=== PATIENT | male | born 1995 | race Caucasian/White ===

== ENCOUNTER 2016-11-28 16:56 | Emergency (ER) | payer MEDICAID, SELFPAY ==
[~2016-11-28] VITALS: Ht 175.3 cm; Wt 74.8 kg
[~2016-11-28 16:56] MED LIST: NO HOME MEDICATIONS; VIAG100T PO
[2016-11-28] MEDS ORDERED: NALOXONE INJ 2 MG/2 ML SYRINGE (J2310) IM STA (17:04)
[2016-11-28] MEDS ORDERED: NALOXONE INJ 2 MG/2 ML SYRINGE (J2310) IV STA (17:04)
[2016-11-28 17:45] VITALS: BP 102/46
== END 2016-11-28 18:36 | disposition home or self-care (01) ==
LOC: EDBD 16:56 → M ED 18:27
DX: F11.10 Opioid abuse, uncomplicated (principal); T40.1X1A Poisoning by heroin, accidental (unintentional), initial encounter; F17.200 Nicotine dependence, unspecified, uncomplicated
CPT/HCPCS: 36415; 96372; 96374; 99283; J2310

== ENCOUNTER → 2016-12-06 | Outpatient (CLI) | payer MEDICAID | LOC: M OUTALCOH 08:40 | PROVIDERS: ATTEND Psychiatry & Neurology Psychiatry | DX: Z13.9 Encounter for screening, unspecified (principal) ==

== ENCOUNTER → 2016-12-08 | Outpatient (CLI) | payer MEDICAID | LOC: M OUTALCOH 07:50 | PROVIDERS: ATTEND Psychiatry & Neurology Psychiatry | DX: Z13.9 Encounter for screening, unspecified (principal); F13.20 Sedative, hypnotic or anxiolytic dependence, uncomplicated; F11.20 Opioid dependence, uncomplicated ==

== ENCOUNTER 2016-12-15 13:53 | Outpatient (RCR) | payer MEDICAID | END 2017-01-11 | LOC: M OUTALCOH 13:53 | PROVIDERS: ATTEND Psychiatry & Neurology Psychiatry | DX: F13.20 Sedative, hypnotic or anxiolytic dependence, uncomplicated (principal); F11.20 Opioid dependence, uncomplicated; Z72.0 Tobacco use ==

== ENCOUNTER 2017-05-21 17:08 | Emergency (ER) | payer MEDICAID ==
[~2017-05-21] VITALS: Ht 180.3 cm; Wt 75.0 kg
[2017-05-21 17:09] VITALS: BP 131/78
[2017-05-21] MEDS ORDERED: RITA10TA PO (17:24)
== END 2017-05-21 17:50 | disposition left against medical advice (07) ==
LOC: M ED 17:08
DX: Z71.1 Person with feared health complaint in whom no diagnosis is made (principal); Z53.21 Procedure and treatment not carried out due to patient leaving prior to being seen by health care provider

== ENCOUNTER 2017-06-27 12:38 | Emergency (ER) | payer MEDICAID, OTHER ==
[~2017-06-27] VITALS: Ht 180.3 cm; Wt 75.0 kg
[~2017-06-27 12:38] MED LIST changes: +RITA10TA PO
[2017-06-27 14:14] VITALS: BP 123/59
== END 2017-06-27 14:16 | disposition home or self-care (01) ==
LOC: M ED 12:38
DX: F19.11 Other psychoactive substance abuse, in remission (principal); Z79.899 Other long term (current) drug therapy

== ENCOUNTER → 2017-07-04 | Outpatient (CLI) | payer OTHER ==
[2017-07-04 11:52] LABS: MEAN CORPUSCULAR HEMOGLOBIN 30.4 pg (27.0-33.0); MEAN CORPUSCULAR HGB CONC 34.6 g/dl (32.0-36.5); MEAN CORPUSCULAR VOLUME 87.9 fl (80.0-96.0); PLATELET COUNT, AUTOMATED 253 10^3/uL (150-450); WHITE BLOOD COUNT 7.1 10^3/uL (4.0-10.0)
[2017-07-04 12:11] LABS: ALBUMIN 4.2 GM/DL (3.2-5.2); ALBUMIN/GLOBULIN RATIO 1.31 (1.00-1.93); ALKALINE PHOSPHATASE 98 U/L (45-117); ALT/SGPT 48 U/L (12-78); ANION GAP 6 MEQ/L (8-16); AST/SGOT 46 U/L (7-37); BILIRUBIN,TOTAL 0.8 MG/DL (0.2-1.0); BLOOD UREA NITROGEN 8 MG/DL (7-18); CALCIUM LEVEL 9.2 MG/DL (8.5-10.1); CARBON DIOXIDE LEVEL 31 MEQ/L (21-32); CHLORIDE LEVEL 101 MEQ/L (98-107); CHOLESTEROL LEVEL 179 MG/DL (<200); CREATININE FOR GFR 0.86 MG/DL (0.70-1.30); GLOMERULAR FILTRATION RATE > 60.0 (>60); GLUCOSE, FASTING 104 MG/DL (70-105); POTASSIUM SERUM 4.2 MEQ/L (3.5-5.1); SODIUM LEVEL 138 MEQ/L (136-145); TOTAL PROTEIN 7.4 GM/DL (6.4-8.2); TRIGLYCERIDES LEVEL 110 MG/DL (<150)
== END ==
LOC: M LAB 10:59
PROVIDERS: ATTEND Family Medicine
DX: D64.9 Anemia, unspecified (principal)

== ENCOUNTER 2017-08-26 15:37 | Emergency (ER) | payer OTHER | END 2017-08-26 17:29 | disposition home or self-care (01) | LOC: M ED 15:37 | DX: T40.1X1A Poisoning by heroin, accidental (unintentional), initial encounter (principal); Y92.9 Unspecified place or not applicable; Y93.9 Activity, unspecified; F19.10 Other psychoactive substance abuse, uncomplicated; F17.200 Nicotine dependence, unspecified, uncomplicated; Z79.899 Other long term (current) drug therapy | CPT/HCPCS: 99284 ==

== ENCOUNTER → 2018-02-12 | Outpatient (CLI) | payer OTHER ==
[2018-02-12 10:35] LABS: HEMATOCRIT 41.6 % (42.0-52.0); HEMOGLOBIN 13.9 g/dl (13.5-17.5); MEAN CORPUSCULAR HEMOGLOBIN 30.8 pg (27.0-33.0); MEAN CORPUSCULAR HGB CONC 33.4 g/dl (32.0-36.5); PLATELET COUNT, AUTOMATED 270 10^3/uL (150-450); RED BLOOD COUNT 4.52 10^6/uL (4.30-6.10); RED CELL DISTRIBUTION WIDTH 13.1 % (11.5-14.5); WHITE BLOOD COUNT 6.8 10^3/uL (4.0-10.0)
[2018-02-12 11:03] LABS: ALBUMIN 4.1 GM/DL (3.2-5.2); ALBUMIN/GLOBULIN RATIO 1.32 (1.00-1.93); ALKALINE PHOSPHATASE 97 U/L (45-117); ALT/SGPT 59 U/L (12-78); ANION GAP 5 MEQ/L (8-16); AST/SGOT 24 U/L (7-37); BILIRUBIN,TOTAL 0.5 MG/DL (0.2-1.0); BLOOD UREA NITROGEN 11 MG/DL (7-18); CALCIUM LEVEL 9.1 MG/DL (8.5-10.1); CARBON DIOXIDE LEVEL 32 MEQ/L (21-32); CHLORIDE LEVEL 105 MEQ/L (98-107); CREATININE FOR GFR 0.83 MG/DL (0.70-1.30); GLOMERULAR FILTRATION RATE > 60.0 (>60); GLUCOSE, FASTING 93 MG/DL (70-100); POTASSIUM SERUM 4.6 MEQ/L (3.5-5.1); SODIUM LEVEL 142 MEQ/L (136-145); TOTAL PROTEIN 7.2 GM/DL (6.4-8.2)
[2018-02-12 11:20] LABS: HEPATITIS B SURFACE ANTIGEN NEGATIVE (NEGATIVE)
[2018-02-12 11:48] LABS: HIV 1&2 SCREEN CENTAUR NEGATIVE (NEGATIVE)
[2018-02-12 11:54] LABS: HEPATITIS C VIRUS ABY INDEX > 11.0 INDEX (<0.8)
[2018-02-12 14:15] LABS: CHLAMYDIA DNA AMPLIFICATION NEGATIVE (NEGATIVE); GC DNA AMPLIFICATION NEGATIVE (NEGATIVE)
[2018-02-17 00:12] LABS: HCV RNA NAA QUALITATIVE Negative (Negative)
== END ==
LOC: M LAB 09:49
DX: F11.20 Opioid dependence, uncomplicated (principal)
CPT/HCPCS: 93005

== ENCOUNTER → 2018-09-10 | Outpatient (REF) | payer OTHER | LOC: M LAB REF 15:05 | PROVIDERS: ATTEND Family Medicine | DX: F90.0 Attention-deficit hyperactivity disorder, predominantly inattentive type (principal) ==

== ENCOUNTER → 2020-08-11 | Outpatient (REF) | payer OTHER | LOC: M LAB REF 16:01 | PROVIDERS: ATTEND Family Medicine Addiction Medicine | DX: R85.0 Abnormal level of enzymes in specimens from digestive organs and abdominal cavity (principal) ==

== ENCOUNTER → 2021-05-17 | Outpatient (CLI) | payer OTHER ==
--- NOTE | 2021-05-17 17:27 | REP ---
INDICATION: PAIN IN LEFT FOREARM COMPARISON: None. TECHNIQUE: AP, lateral, bilateral oblique views of the left elbow. FINDINGS: There is a nondisplaced radial head fracture with associated joint effusion and swelling. IMPRESSION: Acute nondisplaced radial head fracture. <Electronically signed by Jose D Yoon > 05/17/21 1524
--- NOTE | 2021-05-17 17:28 | REP ---
INDICATION: PAIN IN LEFT FOREARM COMPARISON: None. TECHNIQUE: AP and lateral left forearm. FINDINGS: Acute nondisplaced fracture of the radial head at the elbow joint with associated joint effusion and swelling. Remainder of the radius and ulna appear intact and normal. IMPRESSION: Acute nondisplaced radial head fracture with swelling and effusion.. <Electronically signed by Jose D Yoon > 05/17/21 [id number]
== END ==
LOC: M RAD 16:50
PROVIDERS: ATTEND Family Medicine Addiction Medicine
DX: M79.632 Pain in left forearm (principal)

== ENCOUNTER → 2021-05-20 | Outpatient (CLI) | payer MEDICAID | LOC: M OUTALCOH 09:49 | PROVIDERS: ATTEND Psychiatry & Neurology Psychiatry | DX: F12.10 Cannabis abuse, uncomplicated (principal) ==

== ENCOUNTER 2021-06-09 14:00 | Outpatient (RCR) | payer MEDICAID | END 2021-06-13 | LOC: M OUTALCOH 14:00 | PROVIDERS: ATTEND Psychiatry & Neurology Psychiatry | DX: F10.10 Alcohol abuse, uncomplicated (principal); F12.10 Cannabis abuse, uncomplicated ==

== ENCOUNTER 2021-07-12 11:00 | Outpatient (RCR) | payer MEDICAID | END 2021-07-13 | LOC: M OUTALCOH 11:00 | PROVIDERS: ATTEND Psychiatry & Neurology Psychiatry | DX: F10.10 Alcohol abuse, uncomplicated (principal); F12.10 Cannabis abuse, uncomplicated; F17.200 Nicotine dependence, unspecified, uncomplicated ==

== ENCOUNTER 2021-08-11 13:00 | Outpatient (RCR) | payer MEDICAID | END 2021-08-13 | LOC: M OUTALCOH 13:00 | PROVIDERS: ATTEND Psychiatry & Neurology Psychiatry | DX: F10.10 Alcohol abuse, uncomplicated (principal); F12.10 Cannabis abuse, uncomplicated; F17.200 Nicotine dependence, unspecified, uncomplicated ==

== ENCOUNTER 2022-11-18 15:49 | Emergency (ER) | payer MEDICAID ==
[2022-11-18] MEDS ORDERED: NICO1DIS10 TD (17:02)
[2022-11-18] MEDS ORDERED: METH20TA29 PO (17:02)
[2022-11-18] MEDS ORDERED: BUPR1FIL3 SL (17:02)
[2022-11-18] MEDS ORDERED: HOME MED LIST COMPLETE! XX SCH (17:05)
[2022-11-18 21:01] VITALS: BP 124/87
== END 2022-11-18 21:04 | disposition home or self-care (01) ==
LOC: M ED 15:49
DX: Z00.8 Encounter for other general examination (principal); F90.9 Attention-deficit hyperactivity disorder, unspecified type; F19.10 Other psychoactive substance abuse, uncomplicated; F12.10 Cannabis abuse, uncomplicated

== ENCOUNTER → 2023-03-07 | Outpatient (CLI) | payer OTHER ==
[~2023-03-07] MED LIST changes: +BUPR1FIL3 SL; +METH20TA29 PO; +NICO1DIS10 TD
[2023-03-07 15:22] LABS: BASO # 0.1 10^3/uL (0.0-0.2); BASO % 0.8 % (0.0-1.0); EOS # 0.4 10^3/uL (0.0-0.5); EOS % 7.1 % (0.0-3.0); HEMATOCRIT 37.8 % (42.0-52.0); LYMPH # 2.7 10^3/uL (1.5-5.0); LYMPH % 42.9 % (24.0-44.0); MEAN CORPUSCULAR HEMOGLOBIN 30.7 pg (27.0-33.0); MEAN CORPUSCULAR HGB CONC 34.4 g/dl (32.0-36.5); MEAN CORPUSCULAR VOLUME 89.4 fl (80.0-96.0); MONO # 0.5 10^3/uL (0.0-0.8); MONO % 7.4 % (2.0-8.0); NEUTROPHILS # 2.6 10^3/uL (1.5-8.5); NEUTROPHILS % 41.5 % (36.0-66.0); PLATELET COUNT, AUTOMATED 259 10^3/uL (150-450); RED BLOOD COUNT 4.23 10^6/uL (4.30-6.10); WHITE BLOOD COUNT 6.2 10^3/uL (4.0-10.0)
[2023-03-07 15:45] LABS: ALBUMIN 4.8 G/DL (3.2-5.2); ALKALINE PHOSPHATASE 76 U/L (46-116); ALT/SGPT 16 U/L (7.0-40); AST/SGOT 21 U/L (<34); BILIRUBIN,DIRECT 0.4 MG/DL (<0.4); BILIRUBIN,TOTAL 1.1 MG/DL (0.3-1.2); TOTAL PROTEIN 7.4 G/DL (5.7-8.2)
[2023-03-07 15:46] LABS: HEPATITIS B SURFACE ANTIBODY NEGATIVE (POSITIVE)
[2023-03-07 16:20] LABS: HEPATITIS B CORE ANTIBODY IGM NEGATIVE (NEGATIVE)
[2023-03-07 19:10] LABS: HEPATITIS C VIRUS ABY INDEX 10.97 INDEX (<0.8)
== END ==
LOC: M RAD 14:04
PROVIDERS: ATTEND Physician Assistant Medical
DX: R10.11 Right upper quadrant pain (principal); K80.20 Calculus of gallbladder without cholecystitis without obstruction

== ENCOUNTER 2023-07-05 11:57 | Emergency (ER) | payer OTHER ==
[~2023-07-05] VITALS: Ht 180.3 cm; Wt 67.9 kg
[2023-07-05] MEDS ORDERED: OLANZapine ORAL DISINTEGRATING TAB 5MG PO ONE (13:10)
[2023-07-05 13:33] LABS: HEMATOCRIT 40.9 % (42.0-52.0); HEMOGLOBIN 13.8 g/dl (13.5-17.5); MEAN CORPUSCULAR HEMOGLOBIN 30.3 pg (27.0-33.0); MEAN CORPUSCULAR HGB CONC 33.7 g/dl (32.0-36.5); MEAN CORPUSCULAR VOLUME 89.9 fl (80.0-96.0); PLATELET COUNT, AUTOMATED 261 10^3/uL (150-450); RED BLOOD COUNT 4.55 10^6/uL (4.30-6.10); WHITE BLOOD COUNT 5.1 10^3/uL (4.0-10.0)
[2023-07-05 13:44] LABS: ETHYL ALCOHOL (ETHANOL) < 0.003 % (0.000-0.010)
[2023-07-05 13:46] LABS: ALBUMIN 4.9 G/DL (3.2-5.2); ALKALINE PHOSPHATASE 78 U/L (46-116); ALT/SGPT 19 U/L (7.0-40); AST/SGOT 17 U/L (<34); BILIRUBIN,DIRECT 0.3 MG/DL (<0.4); BILIRUBIN,TOTAL 0.7 MG/DL (0.3-1.2); BLOOD UREA NITROGEN 12 MG/DL (9-23); CALCIUM LEVEL 10.2 MG/DL (8.5-10.1); CARBON DIOXIDE LEVEL 26 MMOL/L (20-31); CHLORIDE LEVEL 102 MMOL/L (98-107); CREATININE FOR GFR 0.64 MG/DL (0.70-1.30); GLOMERULAR FILTRATION RATE > 60.0 (>60); GLUCOSE, FASTING 110 MG/DL (60-100); SALICYLATE LEVEL < 3.0 MG/DL (<30); SODIUM LEVEL 137 MMOL/L (136-145); TOTAL PROTEIN 7.7 G/DL (5.7-8.2)
[2023-07-05 13:49] LABS: THYROID STIMULATING HORMONE 1.045 uIU/ML (0.55-4.78)
[2023-07-05] MEDS ORDERED: MED REC IN PROGRESS XX SCH (15:10)
[2023-07-05 15:24] LABS: AMPHETAMINES LEVEL URINE NEGATIVE (NEGATIVE); BARBITURATES URINE NEGATIVE (NEGATIVE); BENZODIAZEPINES URINE NEGATIVE (NEGATIVE); COCAINE METABOLITE URINE NEGATIVE (NEGATIVE); METHADONE URINE NEGATIVE (NEGATIVE); OPIATES URINE NEGATIVE (NEGATIVE); PHENCYCLIDINE URINE NEGATIVE (NEGATIVE)
[2023-07-05] MEDS ORDERED: HOME MED LIST COMPLETE! XX SCH (15:25)
[2023-07-05 15:32] LABS: CANNABINOIDS URINE POSITIVE (NEGATIVE)
[2023-07-05 15:59] VITALS: BP 143/87; TEMP 98.4; O2SAT 97
== END 2023-07-05 16:06 | disposition home or self-care (01) ==
LOC: M ED 11:57
DX: R44.0 Auditory hallucinations (principal); F90.9 Attention-deficit hyperactivity disorder, unspecified type; F17.200 Nicotine dependence, unspecified, uncomplicated; F12.10 Cannabis abuse, uncomplicated; Z79.899 Other long term (current) drug therapy; Z79.891 Long term (current) use of opiate analgesic

== ENCOUNTER 2023-07-28 19:42 | Emergency (ER) | payer OTHER ==
[~2023-07-28] VITALS: Ht 180.3 cm; Wt 71.1 kg
[2023-07-28 19:42] VITALS: BP 119/68; TEMP 97.4; O2SAT 100
== END 2023-07-28 23:35 | disposition left against medical advice (07) ==
LOC: M ED 19:42
DX: Z53.21 Procedure and treatment not carried out due to patient leaving prior to being seen by health care provider (principal)

== ENCOUNTER 2023-08-04 10:58 | Emergency (ER) | payer OTHER ==
[~2023-08-04] VITALS: Ht 180.3 cm; Wt 75.0 kg
[2023-08-04 12:04] LABS: HEMATOCRIT 42.9 % (42.0-52.0); HEMOGLOBIN 14.6 g/dl (13.5-17.5); MEAN CORPUSCULAR HEMOGLOBIN 31.3 pg (27.0-33.0); MEAN CORPUSCULAR VOLUME 91.9 fl (80.0-96.0); PLATELET COUNT, AUTOMATED 240 10^3/uL (150-450); RED BLOOD COUNT 4.67 10^6/uL (4.30-6.10)
[2023-08-04 12:35] LABS: AMPHETAMINES LEVEL URINE NEGATIVE (NEGATIVE); BARBITURATES URINE NEGATIVE (NEGATIVE); BENZODIAZEPINES URINE NEGATIVE (NEGATIVE); COCAINE METABOLITE URINE NEGATIVE (NEGATIVE); METHADONE URINE NEGATIVE (NEGATIVE); OPIATES URINE NEGATIVE (NEGATIVE); PHENCYCLIDINE URINE NEGATIVE (NEGATIVE)
[2023-08-04 12:37] LABS: ETHYL ALCOHOL (ETHANOL) 0.007 % (0.000-0.010)
[2023-08-04 12:39] LABS: ALKALINE PHOSPHATASE 78 U/L (46-116); ALT/SGPT 17 U/L (7.0-40); AST/SGOT 16 U/L (<34); BILIRUBIN,DIRECT 0.2 MG/DL (<0.4); BILIRUBIN,TOTAL 0.8 MG/DL (0.3-1.2); BLOOD UREA NITROGEN 10 MG/DL (9-23); CALCIUM LEVEL 10.1 MG/DL (8.5-10.1); CARBON DIOXIDE LEVEL 31 MMOL/L (20-31); CHLORIDE LEVEL 101 MMOL/L (98-107); CREATININE FOR GFR 0.62 MG/DL (0.70-1.30); GLOMERULAR FILTRATION RATE > 60.0 (>60); GLUCOSE, FASTING 91 MG/DL (60-100); SALICYLATE LEVEL < 3.0 MG/DL (<30); SODIUM LEVEL 138 MMOL/L (136-145); TOTAL PROTEIN 7.7 G/DL (5.7-8.2)
[2023-08-04 12:41] LABS: THYROID STIMULATING HORMONE 1.754 uIU/ML (0.55-4.78)
[2023-08-04 12:59] LABS: CANNABINOIDS URINE POSITIVE (NEGATIVE)
[2023-08-04] MEDS ORDERED: MED REC IN PROGRESS XX SCH (13:00)
[2023-08-04] MEDS ORDERED: NICO21DI37 TD (13:24)
[2023-08-04] MEDS ORDERED: HOME MED LIST COMPLETE! XX SCH (13:30)
[2023-08-04 13:41] VITALS: BP 143/90; TEMP 98.7; O2SAT 100
== END 2023-08-04 13:38 | disposition home or self-care (01) ==
LOC: M ED 10:58
DX: F12.10 Cannabis abuse, uncomplicated (principal); F90.9 Attention-deficit hyperactivity disorder, unspecified type; Z79.899 Other long term (current) drug therapy

== ENCOUNTER 2023-08-27 12:18 | Inpatient (IN) | payer MEDICAID, OTHER ==
[~2023-08-27] VITALS: Ht 180.3 cm; Wt 74.0 kg
[~2023-08-27 12:18] MED LIST changes: +NICO21DI37 TD
[2023-08-27] MEDS ORDERED: MED REC IN PROGRESS XX SCH (12:40)
[2023-08-27 13:05] LABS: HEMATOCRIT 42.5 % (42.0-52.0); HEMOGLOBIN 14.5 g/dl (13.5-17.5); MEAN CORPUSCULAR HEMOGLOBIN 31.4 pg (27.0-33.0); MEAN CORPUSCULAR HGB CONC 34.1 g/dl (32.0-36.5); PLATELET COUNT, AUTOMATED 198 10^3/uL (150-450); RED BLOOD COUNT 4.62 10^6/uL (4.30-6.10); WHITE BLOOD COUNT 4.4 10^3/uL (4.0-10.0)
[2023-08-27 13:23] LABS: AMPHETAMINES LEVEL URINE NEGATIVE (NEGATIVE); BARBITURATES URINE NEGATIVE (NEGATIVE); BENZODIAZEPINES URINE NEGATIVE (NEGATIVE); COCAINE METABOLITE URINE NEGATIVE (NEGATIVE); METHADONE URINE NEGATIVE (NEGATIVE); OPIATES URINE NEGATIVE (NEGATIVE); PHENCYCLIDINE URINE NEGATIVE (NEGATIVE)
[2023-08-27 13:25] LABS: ETHYL ALCOHOL (ETHANOL) < 0.003 % (0.000-0.010)
[2023-08-27 13:26] LABS: SALICYLATE LEVEL < 3.0 MG/DL (<30)
[2023-08-27 13:27] LABS: ALBUMIN 5.2 G/DL (3.2-5.2); ALKALINE PHOSPHATASE 72 U/L (46-116); ALT/SGPT 48 U/L (7.0-40); AST/SGOT 29 U/L (<34); BILIRUBIN,DIRECT 0.2 MG/DL (<0.4); BILIRUBIN,TOTAL 0.7 MG/DL (0.3-1.2); BLOOD UREA NITROGEN 16 MG/DL (9-23); CANNABINOIDS URINE POSITIVE (NEGATIVE); CARBON DIOXIDE LEVEL 30 MMOL/L (20-31); CHLORIDE LEVEL 100 MMOL/L (98-107); CREATININE FOR GFR 0.78 MG/DL (0.70-1.30); GLOMERULAR FILTRATION RATE > 60.0 (>60); GLUCOSE, FASTING 114 MG/DL (60-100); POTASSIUM SERUM 3.6 MMOL/L (3.5-5.1); SODIUM LEVEL 138 MMOL/L (136-145)
[2023-08-27 13:29] LABS: THYROID STIMULATING HORMONE 1.125 uIU/ML (0.55-4.78)
[2023-08-27] MEDS ORDERED: HOME MED LIST COMPLETE! XX SCH (14:00)
[2023-08-27] MEDS: METHYLPHENIDATE 5 MG TAB PO SCH (15:27)
[2023-08-27] MEDS ORDERED: NICOTINE 21MG/24HR 1 EA TRANSDERMAL TD ONE (17:45)
[2023-08-28] MEDS: METHYLPHENIDATE 5 MG TAB PO SCH ×3 (08:11→15:01)
[2023-08-28] MEDS ORDERED: BUPRENORPHINE/NALOXONE 8-2MG SUBLINGUAL TABLET(SUBOXONE) SL SCH (09:00)
[2023-08-28] MEDS ORDERED: MAALOX 30 ML SUSP *UDC PO PRN (16:05)
[2023-08-28] MEDS ORDERED: IBUPROFEN 400MG TAB PO PRN (16:05)
[2023-08-28] MEDS ORDERED: diphenhydrAMINE 25MG CAP PO PRN (16:05)
[2023-08-28] MEDS ORDERED: ACETAMINOPHEN TAB 650MG DOSE (2X325MG) PO PRN (16:05)
[2023-08-28] MEDS ORDERED: MOM 30ML SUSPENSION UDC PO PRN (16:05)
[2023-08-28 17:14] VITALS: BP 144/85; TEMP 98.3; O2SAT 100
[2023-08-28] MEDS: OLANZapine ORAL DISINTEGRATING TAB 5MG PO PRN (18:04)
[2023-08-29 06:38] VITALS: BP 109/55; TEMP 97.7; O2SAT 100
[2023-08-29] MEDS: NICOTINE 21MG/24HR 1 EA TRANSDERMAL TD PRN (08:11)
[2023-08-29] MEDS: OLANZapine ORAL DISINTEGRATING TAB 5MG PO PRN (09:09)
[2023-08-29] MEDS: METHYLPHENIDATE 5 MG TAB PO SCH ×3 (10:02→15:54)
[2023-08-29] MEDS: PILL CUTTER 1 EACH XX PRN (10:50)
[2023-08-29] MEDS: BUPRENORPHINE/NALOXONE 8-2MG SUBLINGUAL TABLET(SUBOXONE) SL SCH (10:51)
[2023-08-29 16:26] VITALS: BP 140/80; TEMP 98.2; O2SAT 100
[2023-08-29] MEDS: traZODone 50 MG TAB PO PRN (19:58)
[2023-08-29] MEDS: OLANZapine 5 MG TAB PO SCH (19:58)
[2023-08-30 06:33] VITALS: BP 106/80; TEMP 98.7; O2SAT 100
[2023-08-30] MEDS: NICOTINE 21MG/24HR 1 EA TRANSDERMAL TD PRN (08:00)
[2023-08-30] MEDS: METHYLPHENIDATE 5 MG TAB PO SCH ×3 (08:00→14:41)
[2023-08-30] MEDS: PILL CUTTER 1 EACH XX PRN (08:55)
[2023-08-30] MEDS: BUPRENORPHINE/NALOXONE 8-2MG SUBLINGUAL TABLET(SUBOXONE) SL SCH (08:55)
[2023-08-30] MEDS: OLANZapine ORAL DISINTEGRATING TAB 5MG PO PRN (12:51)
[2023-08-30 17:10] VITALS: BP 138/82; TEMP 99
[2023-08-30] MEDS: traZODone 50 MG TAB PO PRN (20:06)
[2023-08-30] MEDS: OLANZapine 5 MG TAB PO SCH (20:06)
[2023-08-31 06:49] VITALS: BP 127/59; TEMP 98.1; O2SAT 99
[2023-08-31] MEDS: PILL CUTTER 1 EACH XX PRN (08:03)
[2023-08-31] MEDS: NICOTINE 21MG/24HR 1 EA TRANSDERMAL TD PRN (08:03)
[2023-08-31] MEDS: METHYLPHENIDATE 5 MG TAB PO SCH ×3 (08:03→14:13)
[2023-08-31] MEDS: BUPRENORPHINE/NALOXONE 8-2MG SUBLINGUAL TABLET(SUBOXONE) SL SCH (08:03)
[2023-08-31] MEDS ORDERED: OLAN1TAB16 PO (12:22)
[2023-08-31 16:58] VITALS: BP 127/77; TEMP 99.5; O2SAT 99
[2023-08-31] MEDS: OLANZapine 5 MG TAB PO SCH (20:01)
[2023-08-31] MEDS: traZODone 50 MG TAB PO PRN (20:01)
[2023-09-01 06:30] VITALS: BP 109/60; TEMP 98.4; O2SAT 99
[2023-09-01] MEDS: NICOTINE 21MG/24HR 1 EA TRANSDERMAL TD PRN (07:58)
[2023-09-01] MEDS: BUPRENORPHINE/NALOXONE 8-2MG SUBLINGUAL TABLET(SUBOXONE) SL SCH (07:58)
[2023-09-01] MEDS: METHYLPHENIDATE 5 MG TAB PO SCH (09:20)
== END 2023-09-01 11:14 | disposition home or self-care (01) | DRG 751 ==
LOC: M ED 12:18 → M ED INP 08-28 16:01 → M PSY 08-28 17:12
PROVIDERS: ADMIT Student in an Organized Health Care Education/Training Program; ATTEND Student in an Organized Health Care Education/Training Program
DX: F29 Unspecified psychosis not due to a substance or known physiological condition (principal); Z91.148 Patient's other noncompliance with medication regimen for other reason; F17.220 Nicotine dependence, chewing tobacco, uncomplicated; Z79.899 Other long term (current) drug therapy; F90.9 Attention-deficit hyperactivity disorder, unspecified type; Z91.52 Personal history of nonsuicidal self-harm

== ENCOUNTER 2024-02-23 10:36 | Emergency (ER) | payer MEDICAID ==
[~2024-02-23] VITALS: Ht 180.3 cm; Wt 77.1 kg
[~2024-02-23 10:36] MED LIST changes: +OLAN1TAB16 PO
[2024-02-23 11:54] LABS: BASO # 0.1 10^3/uL (0.0-0.2); BASO % 1.1 % (0.0-1.0); EOS # 0.5 10^3/uL (0.0-0.5); EOS % 11.5 % (0.0-3.0); HEMATOCRIT 38.9 % (42.0-52.0); HEMOGLOBIN 13.1 g/dl (13.5-17.5); LYMPH # 1.8 10^3/uL (1.5-5.0); LYMPH % 39.7 % (24.0-44.0); MEAN CORPUSCULAR HEMOGLOBIN 30.5 pg (27.0-33.0); MEAN CORPUSCULAR HGB CONC 33.7 g/dl (32.0-36.5); MEAN CORPUSCULAR VOLUME 90.5 fl (80.0-96.0); MONO # 0.3 10^3/uL (0.0-0.8); MONO % 5.9 % (2.0-8.0); NEUTROPHILS # 1.8 10^3/uL (1.5-8.5); NEUTROPHILS % 41.6 % (36.0-66.0); PLATELET COUNT, AUTOMATED 164 10^3/uL (150-450); WHITE BLOOD COUNT 4.4 10^3/uL (4.0-10.0)
[2024-02-23 12:10] LABS: LIPASE 33 U/L (12-53)
[2024-02-23 12:12] LABS: ALBUMIN 4.3 G/DL (3.2-5.2); ALKALINE PHOSPHATASE 75 U/L (46-116); ALT/SGPT 15 U/L (7.0-40); AST/SGOT < 8 U/L (<34); BILIRUBIN,DIRECT 0.1 MG/DL (<0.4); BILIRUBIN,TOTAL 0.4 MG/DL (0.3-1.2); TOTAL PROTEIN 6.7 G/DL (5.7-8.2)
[2024-02-23 13:03] VITALS: BP 109/55; TEMP 97.3; O2SAT 100
== END 2024-02-23 13:04 | disposition home or self-care (01) ==
LOC: M ED 10:36
DX: R10.11 Right upper quadrant pain (principal); F90.9 Attention-deficit hyperactivity disorder, unspecified type; F12.10 Cannabis abuse, uncomplicated; F17.220 Nicotine dependence, chewing tobacco, uncomplicated; Z79.899 Other long term (current) drug therapy

== ENCOUNTER → 2024-04-02 | Outpatient (CLI) | payer OTHER | LOC: M RAD 08:14 | PROVIDERS: ATTEND Family Medicine Addiction Medicine | DX: R10.9 Unspecified abdominal pain (principal) | CPT/HCPCS: 78227; A9537 ==

== ENCOUNTER 2024-10-05 07:52 | Emergency (ER) | payer OTHER ==
[~2024-10-05] VITALS: Ht 180.3 cm; Wt 64.4 kg
[2024-10-05] MEDS ORDERED: SILD100T (08:04)
[2024-10-05] MEDS ORDERED: CETI-24 PO (10:03)
[2024-10-05] MEDS ORDERED: FLON1SPR NARES (10:03)
[2024-10-05 10:25] VITALS: BP 128/64; TEMP 97.2; O2SAT 98
== END 2024-10-05 10:28 | disposition home or self-care (01) ==
LOC: M ED 07:52
DX: R44.0 Auditory hallucinations (principal); H93.8X3 Other specified disorders of ear, bilateral; F12.10 Cannabis abuse, uncomplicated; F17.200 Nicotine dependence, unspecified, uncomplicated; F10.10 Alcohol abuse, uncomplicated; F90.9 Attention-deficit hyperactivity disorder, unspecified type; Z79.899 Other long term (current) drug therapy; Z79.2 Long term (current) use of antibiotics

== ENCOUNTER → 2024-11-29 | Outpatient (REF) | payer OTHER ==
[~2024-11-29] MED LIST changes: +CETI-24 PO; +FLON1SPR NARES; +SILD100T
[2024-11-29 17:58] LABS: HEMATOCRIT 39.4 % (42.0-52.0); HEMOGLOBIN 13.2 g/dl (13.5-17.5); MEAN CORPUSCULAR HEMOGLOBIN 31.3 pg (27.0-33.0); MEAN CORPUSCULAR HGB CONC 33.5 g/dl (32.0-36.5); MEAN CORPUSCULAR VOLUME 93.4 fl (80.0-96.0); PLATELET COUNT, AUTOMATED 217 10^3/uL (150-450); RED BLOOD COUNT 4.22 10^6/uL (4.30-6.10); WHITE BLOOD COUNT 6.2 10^3/uL (4.0-10.0)
[2024-11-29 18:05] LABS: THYROID STIMULATING HORMONE 1.642 uIU/ML (0.55-4.78)
[2024-11-29 18:06] LABS: ALBUMIN 4.3 G/DL (3.2-5.2); ALKALINE PHOSPHATASE 74 U/L (40-129); ALT/SGPT 24 U/L (7.0-40); AST/SGOT 13 U/L (<34); BILIRUBIN,TOTAL 0.5 MG/DL (0.3-1.2); BLOOD UREA NITROGEN 16 MG/DL (9-23); CALCIUM LEVEL 9.7 MG/DL (8.5-10.1); CARBON DIOXIDE LEVEL 30 MMOL/L (20-31); CHLORIDE LEVEL 102 MMOL/L (98-107); CREATININE FOR GFR 0.82 MG/DL (0.70-1.30); GLOMERULAR FILTRATION RATE > 90.0 (>60); GLUCOSE, FASTING 80 MG/DL (60-100); POTASSIUM SERUM 4.4 MMOL/L (3.5-5.1); SODIUM LEVEL 141 MMOL/L (136-145); TOTAL PROTEIN 7.1 G/DL (5.7-8.2)
== END ==
LOC: M LAB REF 17:21
PROVIDERS: ATTEND Family Medicine Addiction Medicine
DX: Z13.228 Encounter for screening for other metabolic disorders (principal)

== ENCOUNTER → 2024-12-10 | Outpatient (CLI) | payer OTHER | LOC: M PLAIMG 06:49 | PROVIDERS: ATTEND Family Medicine Addiction Medicine | DX: R51.9 Headache, unspecified (principal) ==

== ENCOUNTER 2025-06-19 16:33 | Inpatient (IN) | payer OTHER ==
[~2025-06-19] VITALS: Ht 180.3 cm; Wt 60.7 kg
[~2025-06-19 16:33] MED LIST changes: -SILD100T; +SILD100T PO
[2025-06-19 17:26] LABS: PLATELET COUNT, AUTOMATED 337 10^3/uL (150-450)
[2025-06-19 17:55] LABS: AMPHETAMINES LEVEL URINE NEGATIVE (NEGATIVE); BARBITURATES URINE NEGATIVE (NEGATIVE); BENZODIAZEPINES URINE NEGATIVE (NEGATIVE); COCAINE METABOLITE URINE NEGATIVE (NEGATIVE); METHADONE URINE NEGATIVE (NEGATIVE); OPIATES URINE NEGATIVE (NEGATIVE); PHENCYCLIDINE URINE NEGATIVE (NEGATIVE)
[2025-06-19 17:58] LABS: ETHYL ALCOHOL (ETHANOL) < 0.003 % (0.000-0.010)
[2025-06-19 18:00] LABS: ALT/SGPT 22 U/L (7.0-40); AST/SGOT 24 U/L (<34); CALCIUM LEVEL 9.9 MG/DL (8.5-10.1); CARBON DIOXIDE LEVEL 27 MMOL/L (20-31); CHLORIDE LEVEL 100 MMOL/L (98-107); CREATININE FOR GFR 0.98 MG/DL (0.70-1.30); GLOMERULAR FILTRATION RATE > 90.0 (>60); POTASSIUM SERUM 4.0 MMOL/L (3.5-5.1); SALICYLATE LEVEL < 3.0 MG/DL (<30); SODIUM LEVEL 137 MMOL/L (136-145)
[2025-06-19 18:07] LABS: CANNABINOIDS URINE POSITIVE (NEGATIVE)
[2025-06-19] MEDS ORDERED: METH54TA13 PO (19:16)
[2025-06-19] MEDS ORDERED: NICO1DIS10 TOP (19:16)
[2025-06-19] MEDS ORDERED: LISI20TA33 PO (19:16)
[2025-06-19] MEDS ORDERED: HOME MED LIST COMPLETE! XX SCH (19:20)
[2025-06-19] MEDS: NICOTINE 21 MG/24 HR 1 EA TRANSDERMAL TD ONE (19:23)
[2025-06-19] MEDS ORDERED: MED REC COMMENT (19:23)
[2025-06-19 21:19] VITALS: BP 118/64; TEMP 98.1; O2SAT 100
[2025-06-19] MEDS: traZODone 50 MG TAB PO PRN (23:28)
[2025-06-20] MEDS: FLUTICASONE PROPIONATE 0.05% NASAL SPRAY 16 GM NARES SCH (08:16)
[2025-06-20] MEDS: BUPRENORPHINE/NALOXONE 8-2MG SUBLINGUAL TABLET(SUBOXONE) SL SCH (08:16)
[2025-06-20] MEDS: METHYLPHENIDATE ER 18 MG TABLET PO SCH (10:54)
[2025-06-20] MEDS: risperiDONE 0.5 MG TAB PO SCH (10:54)
[2025-06-20] MEDS: NICOTINE 21 MG/24 HR 1 EA TRANSDERMAL TD SCH (14:23)
[2025-06-20 15:45] VITALS: BP 116/79; TEMP 98.7; O2SAT 97
[2025-06-21] MEDS: BUPRENORPHINE/NALOXONE 2-0.5MG SUBLINGUAL TABLET(SUBOXONE) SL SCH (08:11)
[2025-06-21] MEDS: BUPRENORPHINE/NALOXONE 8-2MG SUBLINGUAL TABLET(SUBOXONE) SL SCH (08:11)
[2025-06-21] MEDS: MAALOX 30 ML SUSP *UDC PO PRN (11:16)
[2025-06-21] MEDS: IBUPROFEN 400 MG TAB PO PRN (12:35)
[2025-06-21 15:25] VITALS: BP 125/58; TEMP 98.4; O2SAT 100
[2025-06-22 06:20] VITALS: BP 126/60; TEMP 97.6; O2SAT 100
[2025-06-22 18:29] VITALS: BP 128/70; TEMP 98.5; O2SAT 100
[2025-06-22 20:57] VITALS: BP 128/70; TEMP 98.5; O2SAT 100
[2025-06-22] MEDS: LORazepam 1 MG TAB PO PRN (21:30)
[2025-06-23 06:47] VITALS: BP 125/62; TEMP 97; O2SAT 100
[2025-06-23 08:10] VITALS: BP 134/64
[2025-06-23 16:05] VITALS: BP 122/71; TEMP 98.5; O2SAT 100
[2025-06-23] MEDS: RISPERIDONE 1 MG TAB PO SCH (20:09)
[2025-06-23 20:41] VITALS: BP 122/71; TEMP 98.5; O2SAT 100
[2025-06-24 06:18] VITALS: BP 101/66; TEMP 98.6; O2SAT 99
[2025-06-24 08:04] VITALS: BP 108/55
[2025-06-24 09:04] VITALS: BP 116/63
[2025-06-24 16:30] VITALS: BP 129/79; TEMP 97.2; O2SAT 98
[2025-06-24] MEDS: PANTOPRAZOLE 40MG TAB PO SCH (17:33)
[2025-06-24] MEDS: OLANZapine 5 MG TAB PO PRN (18:09)
[2025-06-25 06:30] VITALS: BP 116/53; TEMP 97.3; O2SAT 96
[2025-06-25 16:12] VITALS: BP 144/98; TEMP 97.2; O2SAT 98
[2025-06-26 06:42] VITALS: BP 103/59; TEMP 97.7; O2SAT 97
[2025-06-26 15:55] VITALS: BP 118/74; TEMP 97.1; O2SAT 98
[2025-06-27 06:28] VITALS: BP 117/55; TEMP 97.2; O2SAT 97
[2025-06-27] MEDS: PALIPERIDONE PAL 234MG/1.5ML INJ (FREE PSY INPT ONLY) IM ONE (15:49)
[2025-06-27 16:34] VITALS: BP 124/61; TEMP 97; O2SAT 100
[2025-06-28 06:25] VITALS: BP 99/55; TEMP 96.8; O2SAT 100
[2025-06-28 08:01] VITALS: BP 144/69
[2025-06-28 14:33] VITALS: BP 127/66; TEMP 98.6; O2SAT 100
[2025-06-29 06:20] VITALS: BP 103/57; TEMP 97.8; O2SAT 98
[2025-06-29 07:56] VITALS: BP 113/59
[2025-06-29] MEDS: MOM 30 ML SUSPENSION UDC PO PRN (11:09)
[2025-06-29] MEDS: CEPACOL LOZENGE PO PRN (13:05)
[2025-06-29 15:39] VITALS: BP 116/62; TEMP 97.8; O2SAT 100
[2025-06-29] MEDS: ACETAMINOPHEN 325 MG TAB PO PRN (16:42)
[2025-06-30 06:33] VITALS: BP 116/59; TEMP 98.2; O2SAT 99
[2025-06-30 07:55] VITALS: BP 119/59
[2025-06-30 16:08] VITALS: BP 148/67; TEMP 97.4; O2SAT 99
[2025-07-01 06:26] VITALS: BP 113/62; TEMP 98.1; O2SAT 99
[2025-07-01 06:28] VITALS: BP 120/88; TEMP 97.6; O2SAT 99
[2025-07-01 08:05] VITALS: BP 125/66
[2025-07-01] MEDS: PALIPERIDONE PAL 156MG/1ML INJ (FREE PSY INPT ONLY) IM ONE (08:06)
[2025-07-01] MEDS ORDERED: INVE117I IM (08:08)
== END 2025-07-01 11:02 | disposition home or self-care (01) | DRG 751 ==
LOC: M ED 16:33 → M ED INP 18:31 → M PSY 20:38
PROVIDERS: ADMIT Student in an Organized Health Care Education/Training Program; ATTEND Student in an Organized Health Care Education/Training Program
DX: F29 Unspecified psychosis not due to a substance or known physiological condition (principal); F25.9 Schizoaffective disorder, unspecified; F41.9 Anxiety disorder, unspecified; F90.9 Attention-deficit hyperactivity disorder, unspecified type; F15.10 Other stimulant abuse, uncomplicated; I10 Essential (primary) hypertension; F12.90 Cannabis use, unspecified, uncomplicated; R45.851 Suicidal ideations; R45.850 Homicidal ideations; Z79.899 Other long term (current) drug therapy